=== PATIENT | male | born 1985 | race Caucasian/White ===

== ENCOUNTER 2018-01-05 10:30 | Outpatient (CLI) | payer MEDICAID | END 2018-01-05 13:00 | LOC: D.OPS 10:30 | DX: R07.9 Chest pain, unspecified (principal); K44.9 Diaphragmatic hernia without obstruction or gangrene; Z01.812 Encounter for preprocedural laboratory examination ==

== ENCOUNTER 2018-03-23 06:00 | Day surgery (SDC) | payer MEDICAID ==
[2018-03-22 16:35] LABS: HEMATOCRIT 43.7 % (42.0-54.0); HEMOGLOBIN 15.7 g/dL (13.5-17.5); MCH 30.7 pg (26.0-34.0); MCHC 35.9 g/dL (31.0-37.0); MCV 85.4 fL (80.0-100.0); MEAN PLATELET VOLUME 9.5 fL (7.4-10.4); RBC 5.12 10x6/uL (4.20-6.10); RDW 12.5 % (11.5-14.5); WBC 5.3 10x3/uL (4.8-10.8)
[2018-03-22 17:04] LABS: ANION GAP 14.3 mmol/L (8-16); CALCIUM 8.9 mg/dL (8.5-10.1); CREATININE - SERUM 1.4 mg/dL (0.6-1.3); POTASSIUM - SERUM 4.3 mmol/L (3.5-5.1)
[2018-03-23] VITALS (11 sets, daily range): BP systolic 122–153; BP diastolic 72–96; Ht 200.7 cm; Wt 122.7 kg
[~2018-03-23] VITALS: Ht 200.7 cm; Wt 122.7 kg
--- NOTE | 2018-03-23 00:20 | NUR ---
PT RESTING WITH UNLABORED RESPIRATIONS. PT AROUSES TO NAME CALLING. PT STATES NO NEEDS AT THIS TIME. CALL LIGHT IN REACH.
[~2018-03-23 06:00] MED LIST: COREG6.25 MG PO; HCTZ25 MG PO; LISINOPRIL5 MG PO
[2018-03-23] MEDS ORDERED: OMEPRAZOLE20 M1 PO (06:19)
[2018-03-23] MEDS ORDERED: ASPIRIN81 MG PO (06:19)
--- NOTE | 2018-03-23 11:17 | NUR ---
RECEIVED TO ROOM 2208 VIA BED FROM PACU. A/O X3. NO C/O AT THIS TIME. 5 LAP SITES TO ABDOMEN NOTED. DENIES NEEDS.
--- NOTE | 2018-03-23 19:00 | NUR ---
PT ALERT AND ORIENTED WHEN ENTERING THE ROOM. AT BEDSIDE. PT HAS LAP SITES TO ABDOMEN. NO DISTRESS NOTED. PT HAS [employer] AND STATES THAT PAIN IS WELL TOLERATED. STATES HE IS GOING TO "GET UP AND GO PEE SOON" INSTRUCTED PT TO USE CALL LIGHT.
[2018-03-24 04:00] VITALS: BP 129/74
[2018-03-24 05:44] LABS: BASOPHILS 0.2 % (0-2); EOSINOPHILS 2.4 % (0-7); HEMATOCRIT 40.3 % (42.0-54.0); IMMATURE GRANULOCYTES 0.1 % (0-5); LYMPHOCYTES 20.2 % (15-50); MCH 30.1 pg (26.0-34.0); MCHC 34.7 g/dL (31.0-37.0); MCV 86.7 fL (80.0-100.0); MEAN PLATELET VOLUME 9.5 fL (7.4-10.4); MONOCYTES 9.6 % (2-11); NEUTROPHILS 67.5 % (40-80); PLATELET COUNT 195 10x3/uL (130-400); RBC 4.65 10x6/uL (4.20-6.10); RDW 12.7 % (11.5-14.5)
[2018-03-24 06:34] LABS: WBC 8.5 10x3/uL (4.8-10.8)
--- NOTE | 2018-03-24 06:41 | NUR ---
PT IN BED RESTING QUIETLY WITH EYES CLOSED. RESPIRATIONS EVEN AND UNLABORED. NO VISUAL CUES OF DISTRESS NOTED. WILL CONTINUE TO MONITOR.
[2018-03-24 06:53] LABS: CALC OSMOLALITY 276 mosm/kg (275-300); CALCIUM 8.1 mg/dL (8.5-10.1); CARBON DIOXIDE 23.9 mmol/L (21.0-32.0); CHLORIDE - SERUM 103 mmol/L (98-107); CREATININE - SERUM 1.1 mg/dL (0.6-1.3); GLUCOSE 95 mg/dL (74-106); SODIUM 138 mmol/L (136-145); UREA NITROGEN 15 mg/dL (7-18); eGFR NON AFRICAN AMERICAN 83 mL/min (90-120)
[2018-03-24 06:57] LABS: POTASSIUM - SERUM 3.5 mmol/L (3.5-5.1)
[2018-03-24 08:00] VITALS: BP 144/70
--- NOTE | 2018-03-24 08:00 | NUR ---
AWAKE AND ALERT. REPORTS NOT VOIDING MUCH. WILL DO BLADDER SCAN. LUNGS ARE CLEAR BILATERALLY, NO COUGH NOTED. SKIN IS INTACT WITHOUT REDNESS EXCEPT 5 SMALL LAP SITES TO ABDOMEN WHICH ARE CLEAN AND DRY. IV TO RIGHT HAND IS PATENT WITHOUT REDNESS AT [facility] SITE[facility] DENIES NEEDS. OFF UNIT VIA FOR TEST.
--- NOTE | 2018-03-24 08:42 | NUR ---
RETURNED FROM EXRAY. BLADDER SCANNER SHOWS [phone] CC. I/O CATH DONE USING STERILE TECHNIQUE. 1100 CC CLEAR URINE RETURNED. PATIENT TOLERATED WELL.
--- NOTE | 2018-03-24 12:00 | NUR ---
C/O UNABLE TO VOID AND FEELING THE NEED. BLADDER SCANNER SHOWED [phone]. WILL CALL DR. BISHOP TO SEE WHAT HE WANTS US TO DO.
[2018-03-24] MEDS ORDERED: REGLAN10 MG PO (12:36)
[2018-03-24] MEDS ORDERED: NORCO-10 PO (12:37)
--- NOTE | 2018-03-24 13:00 | NUR ---
DR. BISHOP HERE. ORDERS TO PLACE CATH AND SEND PATIENT HOME WITH SAME. 16F CATH PLACED USING STERILE TECHNIQUE. 1000CC RETURN OF CLEAR YELLOW URINE. PATINE AND INSTRUCTED HOW TO CARE FOR CATH AND CHANGE TO BIG BAG AT NIGHT TIME. ALL QUESTIONS ANSWERED. PATIENT AND VERBALIZED UNDERSTANDING OF SAME.
--- NOTE | 2018-03-24 13:28 | NUR ---
DISCHARGED TO HOME AMBULATORY WITH . DISCHARGE INSTRUCTIONS GIVEN BOTH VERBALLY AND WRITTEN. ALL QUESTIONS ANSWERED. PATIENT AND VERBALIZED UNDERSTANDING OF SAME. NEEDED PRESCRIPTIONS GIVEN TO PATIENT AND ESCRIBED TO PHARMACY OF CHOICE. IV TO RIGHT HAND D/C WITH CATHETER INTACT. ALL BELONGINGS WITH PATIENT.
--- NOTE | 2018-03-24 13:31 | OP ---
PATIENT NAME: HOME SARAVIA MEDICAL RECORD: [id number] :87 LOCATION:[facility] [id number] ADMISSION DATE: SURGEON: TREMAINE BISHOP MD DATE OF OPERATION: 03/23/2018 PREOPERATIVE DIAGNOSES: 1. Paraesophageal hernia. 2. Gastroesophageal reflux disease. 3. Hypertension. POSTOPERATIVE DIAGNOSES: 1. Paraesophageal hernia. 2. Gastroesophageal reflux disease. 3. Hypertension. PROCEDURE: Laparoscopic paraesophageal hernia repair. SURGEON: Tremaine Bishop MD REPORT OF PROCEDURE: The patient's abdomen was prepped and draped in sterile fashion. A Veress needle was inserted in the left upper abdomen and the abdomen was insufflated. An 11-mm Visiport trocar was inserted in the midline just above the umbilicus. We could see the Veress needle and there was no sign of any injury to bowel or surrounding structures. An 11-mm trocar was placed in the left subcostal region, a 5-mm trocar was placed in the epigastrium, a 5-mm trocar was placed in the left lateral abdomen and a final 5-mm trocar was placed in the right lateral subcostal region. A liver retractor was inserted and the left lobe of the liver was elevated. At this point, we grasped the stomach and pulled it outwards. There was a portion of the stomach extending up through a hiatal hernia into the chest. This would pull down easily, but with release would go back up into the chest cavity. We began our dissection on the lesser omentum using Harmonic scalpel and continued this dissection up to the right side of the right lalo. We dissected out the right side of the right lalo from the surrounding tissues and extended this up into the thoracic cavity. We dissected the tissues away from the patient's distal esophagus. Once we had this free, then we approached the greater curvature of the stomach and took down the short gastrics using Harmonic scalpel for the top third of the stomach. This was continued to the left side of the right lalo. As we continued our dissection into the thoracic cavity, we freed up all the tissue and eventually had a 360 degree inspection of the distal esophagus. At this point, the stomach would easily rest in the abdominal cavity with about 1-2 cm of esophagus present. We reapproximated the esophageal hiatus using interrupted 0 Polydeks times 3. We then performed a posterior 360-degree wrap of the fundus of the stomach around the distal esophagus. We used 3 separate 0 Polydek sutures with the top and the bottom sutures incorporating a bite of the esophagus. The wrap appeared to rest in good position and there was no sign of any bleeding at the conclusion of the case. At this point, the abdomen was irrigated out with normal saline. The indwelling orogastric tube was removed with ease. The liver retractor was removed. At this point, the 11-mm trocar site fascias were closed with 0 Vicryl using a Sudhir-Xuan suture passer device. The ports and insufflation were then removed and the wounds were infused with a total of 10 mL of 0.25% Marcaine with epinephrine and then closed with subcutaneous 5-0 Monocryl. COMPLICATIONS: None. OPERATIVE REPORT [id number] HOME SARAVIA CONDITION: Stable. ANESTHESIA: General endotracheal and local. BLOOD LOSS: Minimal. TRANSINT:[id number] Voice Confirmation ID: [id number] DOCUMENT ID: [id number] TREMAINE BISHOP MD at 1331 CC: BERONICA RAMOS and JIM HICKEY DO [id number] DICTATION DATE: 03/23/18 1011 REFRIGERATION ENGINE OPERATOR: 03/23/18 1058 [facility] [address] [place] [address]
== END 2018-03-24 13:42 | disposition home or self-care (01) ==
LOC: D.MS 06:00 → D.OPS 06:00 → D.PAN 09:00 → D.OPS 09:00 → D.MS 10:54 → D.OPS 03-24 13:42
PROVIDERS: Anesthesiology; Surgery
DX: K44.9 Diaphragmatic hernia without obstruction or gangrene (principal); K21.9 Gastro-esophageal reflux disease without esophagitis; I10 Essential (primary) hypertension; Z01.812 Encounter for preprocedural laboratory examination

== ENCOUNTER → 2018-07-25 08:31 | Outpatient (CLI) | payer MEDICAID ==
[2018-03-23 11:12] VITALS: BMI 30.4
[~2018-07-25 08:31] MED LIST changes: +ASPIRIN81 MG PO; +NORCO-10 PO; +OMEPRAZOLE20 M1 PO; +REGLAN10 MG PO
== END | disposition home or self-care (01) ==
LOC: D.RT 08:00
PROVIDERS: ATTEND Internal Medicine Pulmonary Disease
DX: R07.89 Other chest pain (principal)